=== PATIENT | female | born 1980 | race Caucasian/White ===

== ENCOUNTER 2016-09-05 13:16 | Emergency (ER) | payer OTHER ==
[~2016-09-05 13:16] MED LIST: AMOXICILLIN500 M1 PO; BACTRIM DS TABL1 TAB PO; DICLOFENAC PO; FLEXERIL10 M1 PO; KEFLEX500 MG PO; NO MEDICATIONS; PYRIDIUM PO
[2016-09-05 13:56] LABS: URINE SOURCE CLEAN CATCH
[2016-09-05 14:09] LABS: URINE APPEARANCE CLEAR; URINE BILIRUBIN NEG (NEG); URINE BLOOD TRACE (NEG); URINE COLOR YELLOW; URINE GLUCOSE NEG (NEG); URINE KETONE NEG (NEG); URINE LEUKOCYTE ESTERASE NEG (NEG); URINE NITRATE NEG (NEG); URINE PROTEIN NEG (NEG); URINE SPECIFIC GRAVITY 1.005 (1.003-1.035); URINE UROBILINOGEN 0.2 MG/DL (NEG)
[2016-09-05 14:12] LABS: URBCS1 AUWI 0-2 /[HPF] (0-2); URINE BACTERIA AUWI NEG (NEGATIVE); URINE SQUAMOUS EPITHELIAL CELL NONE SEEN /[HPF]; UWBCS1 AUWI 0-2 (0-5)
[2016-09-05 14:17] LABS: CULTURE INDICATED? NO
[2016-09-09 15:31] LABS: CHLAMYDIA TRACH Not Detected (Not Detected); N GONOR Not Detected (Not Detected)
== END 2016-09-05 15:45 | disposition home or self-care (01) ==
LOC: CED 13:16 → CFTX 13:16 → CED 13:59 → CFTX 13:59
PROVIDERS: Physician Assistant
DX: R10.2 Pelvic and perineal pain (principal); F17.210 Nicotine dependence, cigarettes, uncomplicated; Z88.5 Allergy status to narcotic agent
CPT/HCPCS: 81003; 84703; 87491; 87591; 87808; 87905; 96372; 99284; J0696

== ENCOUNTER 2016-09-20 17:11 | Emergency (ER) | payer OTHER | END 2016-09-20 21:39 | disposition left against medical advice (07) | LOC: CED 17:11 | DX: Z53.21 Procedure and treatment not carried out due to patient leaving prior to being seen by health care provider (principal) ==